=== PATIENT | male | born 1990 | race Caucasian/White ===

== ENCOUNTER → 2018-06-11 09:12 | Outpatient (CLI) | payer OTHER, SELFPAY ==
--- NOTE | 2018-06-11 09:17 | RAD_ITS ---
STUDY: X-RAY - RIGHT HAND REASON FOR EXAM: Male, 27 years old. Pain at the base of the thumb following injury. TECHNIQUE: 4 view(s) of the hand. COMPARISON: None. FINDINGS: Normal radiocarpal articulation. Normal distal radioulnar joint. Normal visualized carpal bones. Normal carpal articulations Normal carpometacarpal articulation of the thumb. Normal second through fifth carpometacarpal joints. Normal metacarpi. Normal metacarpophalangeal joint of the thumb. Normal interphalangeal joint of the thumb. Normal proximal and distal phalanges of the thumb. Normal metacarpophalangeal joints of the second through fifth fingers. Normal proximal and distal interphalangeal joints of the second through fifth fingers. Normal phalanges of the second through fifth fingers. The soft tissue structures are unremarkable. RAD/Hand Min 3 Views IMPRESSION: Normal x-ray examination of the hand. Electronically Signed: Demar Deutsch MD at 9:38 EDT Tel [phone], Service support ,
== END ==
PROVIDERS: Visit Provider Physician Assistant Surgical
DX: S66.911A Strain of unspecified muscle, fascia and tendon at wrist and hand level, right hand, initial encounter (principal); X58.XXXA Exposure to other specified factors, initial encounter
CPT/HCPCS: 73130

== ENCOUNTER → 2019-05-22 14:53 | Outpatient (CLI) | payer OTHER, SELFPAY ==
[2019-05-22 08:44] VITALS: BMI 39.2
== END ==
PROVIDERS: Referring Provider Physician Assistant; Visit Provider Physician Assistant
DX: T22.212A Burn of second degree of left forearm, initial encounter (principal)
CPT/HCPCS: 87070; 87077; 87186; 87205

== ENCOUNTER 2019-06-17 14:00 | Outpatient (RCR) | payer OTHER, SELFPAY ==
[2019-06-02 09:51] VITALS: BMI 39.2
[2019-06-03 14:58] VITALS: BP 185/119; PULSE 95; RESP 20; TEMP 36.4; BMI 37.3
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
[2019-06-10 14:09] VITALS: BP 155/95; PULSE 85; RESP 18; TEMP 36.6; BMI 37.3
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
[2019-06-17 14:00] VITALS: BP 194/100; PULSE 102; RESP 18; TEMP 37.3; BMI 37.3
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
== END 2019-06-25 23:59 ==
LOC: WC 14:00
PROVIDERS: Visit Provider Nurse Practitioner Family
DX: T22.212A Burn of second degree of left forearm, initial encounter (principal); X08.8XXA Exposure to other specified smoke, fire and flames, initial encounter; Y99.0 Civilian activity done for income or pay; L98.492 Non-pressure chronic ulcer of skin of other sites with fat layer exposed
CPT/HCPCS: 11042; 87070; 87075; 87077; 87186; 87205; 99213; G0463

== ENCOUNTER 2019-07-22 14:45 | Outpatient (RCR) | payer OTHER, SELFPAY ==
[2019-06-26 01:10] VITALS: BP 194/100; PULSE 102; RESP 18; TEMP 37.3
[2019-07-03 13:07] VITALS: BP 172/100; PULSE 90; RESP 20; TEMP 37.6; BMI 37.3
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
[2019-07-08 15:03] VITALS: BP 154/97; PULSE 92; RESP 18; TEMP 36.4; BMI 37.3
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
[2019-07-22 15:13] VITALS: BP 189/95; PULSE 94; RESP 18; TEMP 37.4; BMI 37.3
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
== END 2019-07-26 23:59 ==
LOC: WC 14:45
PROVIDERS: Visit Provider Nurse Practitioner Family
DX: T22.212A Burn of second degree of left forearm, initial encounter (principal); X08.8XXA Exposure to other specified smoke, fire and flames, initial encounter; Y99.0 Civilian activity done for income or pay; L98.492 Non-pressure chronic ulcer of skin of other sites with fat layer exposed; M79.602 Pain in left arm
CPT/HCPCS: 99212; 99213; G0463

== ENCOUNTER → 2019-07-30 10:27 | Outpatient (CLI) | payer OTHER, SELFPAY ==
[2019-07-22 15:13] VITALS: BMI 37.3
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
== END ==
PROVIDERS: Referring Provider Physician Assistant; Visit Provider Physician Assistant
DX: T22.212A Burn of second degree of left forearm, initial encounter (principal)
CPT/HCPCS: 73090

== ENCOUNTER 2019-08-18 09:00 | Outpatient (RCR) | payer OTHER, SELFPAY ==
[2019-08-06 10:12] VITALS: BMI 37.3
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
--- NOTE | 2019-10-15 18:55 | HP.OT.NRP ---
HP - Discharge Summary - Patient Information TOMASZ JANE was seen in my office for initial evaluation on 08/06/19. The following Plan of Care was established for this patient: Initial Frequency: 2-3x /Week Initial Duration: 4 Weeks Plan: cont with nerve glide - Anticipated Interventions Anticipated Interventions: A/AAROM/PROM, Strengthening, Scar Care, Triggerpoint Release, Desensitization, Sensory Retraining, Wound Care, Modalities This patient was last seen in our office 08/18/19. Pertinent comments regarding their Occupational therapy will appear below: Pt was seen for 5 OT visits with min. improvement in his symptoms. pt was advised to return to . At this time no further apt have been scheduled, pt is D/C at this time due to time lapse in care. At this point I will be discontinuing this patient from occupational therapy. I would be happy to see this patient again in the future if found appropriate by the physician. Thank you! Mgean Holcomb, OTR/L, CHT
== END 2019-08-18 19:00 | disposition home or self-care (01) ==
LOC: OT 09:00
PROVIDERS: Referring Provider Physician Assistant; Visit Provider Physician Assistant
DX: T22.212D Burn of second degree of left forearm, subsequent encounter (principal); T23.101D Burn of first degree of right hand, unspecified site, subsequent encounter
CPT/HCPCS: 97110; 97140; 97166; 97530

== ENCOUNTER → 2019-11-20 09:23 | Outpatient (CLI) | payer OTHER, SELFPAY ==
[2019-10-29 07:46] VITALS: BMI 37.3
--- NOTE | 2019-11-20 09:24 | RAD_ITS ---
STUDY: X-RAY - ORBITS REASON FOR EXAM: Male, 29 years old. pre mri. hx of metal in both eyes TECHNIQUE: 2 view(s) of the orbits were obtained. COMPARISON: None. FINDINGS: Normal bilateral orbits without a metallic orbital foreign body. Normal visualized facial bones. Normal paranasal sinuses. The soft tissue structures are unremarkable. RAD/Orbits for Foreign Body IMPRESSION: No demonstrated metallic orbital foreign body. The patient is cleared for an MRI examination. Electronically Signed: Duane Guajardo MD at 9:50 EST Tel , Service support ,
--- NOTE | 2019-11-20 09:24 | MRI_ITS ---
STUDY: MRI CERVICAL SPINE WITHOUT CONTRAST REASON FOR EXAM: Male, 29 years old. radiculopathy, neck pain/shoulder pain TECHNIQUE: Standardized fat and water weighted pulse sequences were obtained in the sagittal and axial planes. COMPARISON: None FINDINGS: Normal foramen magnum and brainstem-cervical cord junction. Normal craniovertebral junction. Normal anterior atlantoaxial articulation. Normal odontoid process. There is reversal of the normal cervical lordosis. Normal vertebral bodies and posterior osseous elements. C2-3: Normal endplates. Normal disc height, signal and morphology. Normal central canal and intervertebral neural foramina. C3-4: Normal endplates. Normal disc height, signal and morphology. Normal central canal and intervertebral neural foramina. C4-5: Normal endplates. Normal disc height, signal and morphology. Normal central canal and intervertebral neural foramina. C5-6: Normal endplates. Normal disc height, signal and morphology. Normal central canal and intervertebral neural foramina. C6-7: Normal endplates. Normal disc height, signal and morphology. Normal central canal and intervertebral neural foramina. C7-T1: Normal endplates. Normal disc height, signal and morphology. Normal central canal and intervertebral neural foramina. Normal cervical cord. Normal visualized soft tissue structures. MRI/Spine Cervical (Routine) IMPRESSION: Some reversal normal lordotic curvature possibly from muscular spasm. No spinal stenosis or neural foraminal stenosis. Electronically Signed: Duane Guajardo MD at 16:13 EST Tel , Service support ,
== END ==
PROVIDERS: Referring Provider Physician Assistant Surgical; Visit Provider Physician Assistant Surgical
DX: M54.12 Radiculopathy, cervical region (principal); Z98.890 Other specified postprocedural states
CPT/HCPCS: 70030; 72141

== ENCOUNTER 2020-03-18 10:30 | Outpatient (RCR) | payer OTHER, SELFPAY ==
[2020-01-15 13:30] VITALS: BMI 37.3
[2020-01-28 09:57] VITALS: BMI 37.3
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
--- NOTE | 2020-03-18 11:15 | HP.PTDCSUM_ITS ---
It has been my pleasure to treat TOMASZ JANE referred by JUDY Guillen, with the diagnosis of NECK STRAIN AND CERVICAL RADICULOPATHY for a total of 16 visit(s). Discharge Date: Please see the following information for a summary of their discharge status. Subjective: PATIENT REPORTS HE IS STILL DOING THE EX'S AND DOING OK WITH THEM BUT HE IS NOT GETTING BETTER OVER-ALL. PATIENT STATES HE IS NOT HAPPY WITH BEING ASKED TO WEAR A MASK AND WOULD LIKE TO BE DISCHARGED. PATIENT IS EXPRESSING APPRECIATION FOR US DOING ALL WE HAVE DONE TO TRY TO HELP HIM. Neck Pain Intensity (Out of 10): 6 Left Shoulder Pain Intensity (Out of 10): 6 % Improvement: 0 Objective/Function: PATIENT WAS SEEN TODAY FOR RE-ASSESSMENT OF PROGRESS TOWARD THE SET PT GOALS AND THE NEED FOR FURTHER PHYSICAL THERAPY VS READINESS FOR DISCHARGE. PATIENT IS NOT PROGRESSING WITH PHYSICAL THERAPY AND IS A GOOD CANDIDATE FOR PHYSICIAN RE-ASSESSMENT AT THIS POINT. UPON EXAM TODAY: Motor deficit: LEFT HANDED. RIGHT DISTRICT CLAIMS MANAGER STENGTH 103 LBS. LEFT 49 LBS. RIGHT UE 5/5 WITH MMT'ING. LEFT UE GROSSLY 4/5 WITH MMT'ING - PATIENT C/O A LOT OF INCREASED TINGLING WITH LEFT UE TESTING AGAIN TODAY. Sensory deficit: ALTERED SENSATION OF ENTIRE LEFT UE COMPARED TO RIGHT. ROM deficit: STEVE UE ROM WFL. Dural Signs: POSITIVE LEFT UE. Cervical Mvmt Loss: Flex: NIL. Pro: NIL. Ext: MOD TO VALERIA. Ret: VALERIA. RSB: MOD. LSB: MIN. R Rot: MOD. L Rot: MOD. PATIENT REPO RTS INCREASED NECK AND LEFT UE SX'S WITH CERVICAL ROM TESTING ALL PLANES BUT ESPECIALLY RIGHT ROT AND RIGHT SB AND EXT TODAY. Postural strength: POOR. Palpation: PATIENT CONTINUES TO BE VERY TENDER WITH PALPATION OF ENTIRE CERVICAL SPINE, UPPER THORACIC SPINE, MEDIAL LEFT SCAP REGION AND LEFT TRAP REGIONS. ESPECIALLY TENDER C56 REGION AND LEFT SCAP. Goal 1:: DECREASE C/O NECK AND LEFT UE SX'S (LEFT UE DOMINANT) Goal Progress: Not Progressing Goal 2:: IMPROVE PERSONAL CARE, LIFTING, READING, SLEEP, WORK, DRIVING AND RECREATIONAL FUNCTION. Goal Progress: Not Progressing Goal 3:: INSTRUCT IN PROPHYLAXIS Goal Progress: Not Progressing Plan: D/C DUE TO LACK OF PROGRESS. PATIENT AGREEABLE AND ACTUALLY CAME IN WANTING TO BE DISCHARGED. If there are questions or concerns regarding this patient's physical therapy, please feel free to call me at [phone]. Thank you for the referral of this patient. Sincerely, Alexsandra Rich PT, Cert MDT
== END 2020-03-18 19:00 | disposition home or self-care (01) ==
LOC: PT 10:30
PROVIDERS: Referring Provider Physician Assistant; Visit Provider Physician Assistant
DX: S16.1XXD Strain of muscle, fascia and tendon at neck level, subsequent encounter (principal)
CPT/HCPCS: 97012; 97014; 97035; 97110; 97112; 97162; 97164; 97530; G0283

== ENCOUNTER 2020-08-10 05:53 | Day surgery (SDC) | payer OTHER, SELFPAY ==
[2020-07-26 10:04] VITALS: BMI 37.3
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
[2020-08-10] VITALS (8 sets, daily range): BP systolic 153–162; BP diastolic 91–102; PULSE 87–95; RESP 16–18; TEMP 36.3–37.1; O2SAT 94–97; BMI 35.3
[2020-08-10] MEDS: Lactated Ringers 1,000 ML 100 ML IV (06:30)
[2020-08-10] MEDS: Cefazolin 2 GM in 0.9% Normal Saline 100 ML IV (07:23)
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
[2020-08-10] MEDS: Bupiv/Epi 0.5% Mpf 30 ML Vial (07:38)
--- NOTE | 2020-08-10 07:45 | DCINST_ITS ---
Discharge Diet: No Restrictions Additional Instructions: Ice and elevate operative extremity next 72 hours. Keep dressing on clean and dry for 48 hours then may remove and allow warm soapy water to rinse over incision but do not submerge until sutures are out. Then apply bandaid over incision and change daily. encourage finger range of motion. Not lift more than 1/2 pound. Allergies/Adverse Reactions: Allergies No Known Allergies Allergy (Verified 07/30/20 10:30) Medications to take at Discharge sulindac 200 mg tablet 200 mg PO QDAY #60 tab 06/30/20 Primary Care Physician: Care Physician,No Primary [Primary Care Provider] - Test Results: Test results from this visit will be discussed in further detail at your follow- up appointment, if applicable. Please Follow Up With: Ra Ricardo DO - 2 weeks
--- NOTE | 2020-08-10 07:47 | PCM.OPRPT ---
Report of Operation Date of Procedure: 08/10/20 Description of Surgical Findings:: Preoperative diagnosis; left carpal tunnel syndrome Postoperative diagnosis; same Procedure: Left open carpal tunnel release Anesthesia: Local with MAC Tourniquet time; 10 minutes 250 mm Hg Complications: None Indication for procedure; This is a 29-year-old male with long-standing symptoms consistent with carpal tunnel syndrome the patient did have electrodiagnostic evidence of this and has failed conservative treatment. Risks benefits and alternatives were reviewed including risks of bleeding infection nerve artery tissue damage need for further surgery and continued pain and symptoms, hypersensitivity to scar and Pillar pain. Procedure; The patient was met in the preoperative holding area the operative extremity was identified by both patient and physician and was marked the patient was met by anesthesia and brought back to the operating room and transferred to the operating table in the supine position. Aanesthesia was started. A well-padded tourniquet was placed on the operative upper extremity. The patient was prepped and draped in the usual sterile fashion. A timeout was called to ensure the proper patient procedure and extremity were being contemplated. 0.5 percent Marcaine with epinephrine was injected into the incisional area. An Esmarch was used to exsanguinate the extremity. The tourniquet was inflated to 250 mmHg. A midline incision was made with a 15 blade scalpel between the thenar and hypothenar eminence. This was carried down through the skin and subcutaneous tissue. Jada retractors were then used, a deep blade scalpel was used to make a deep incision in the palmar aponeurosis. The jada retractors were then placed deep to this and the transverse carpal ligament was identified a perforation was made with a scalpel and a Littler scissors were used to complete the release of the transverse carpal ligament distally under direct visualization with the tips facing ulnarly until the perivascular fat was reached. Then turning our attention proximally using a tension slide technique the proximal extent of the transverse carpal ligament was released . There was noted to be hourglass configuration to the median nerve and hypertrophy of the transverse carpal ligament without other findings. The wound was thoroughly irrigated and was closed with 4-0 prolene vertical mattress stitches. Dressing was applied in the form of xeroform 4 x 4, web roll and an sully wrap. Tourniquet was let down there is no intraoperative complications patient tolerated the procedure well and was transferred to the PACU. All counts were correct.
== END 2020-08-10 08:58 | disposition home or self-care (01) ==
LOC: SDC 05:54 → AC 05:54
PROVIDERS: Anesthesiology; Referring Provider Orthopaedic Surgery; Visit Provider Orthopaedic Surgery
PROC: (CPT 64721; principal; 2020-08-10 07:15)
DX: G56.02 Carpal tunnel syndrome, left upper limb (principal); Z11.59 Encounter for screening for other viral diseases
CPT/HCPCS: 01810; 64721; 87635; C9803; J7120; A4216; U0003

== ENCOUNTER 2020-11-03 08:30 | Outpatient (RCR) | payer OTHER, SELFPAY ==
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
--- NOTE | 2020-10-18 09:14 | OTREVAL_ITS ---
Dr. Ra Ricardo, DO, It has been my pleasure to treat TOMASZ JANE over the last 4 visits for CTS, s/p CTR. Please see the progress note below for an update on the occupational therapy plan of care! Subjective: Pt, reporting pain at 5. When required to do more repitions of any movement pain increases to 9 or 10. Pt. reports from the elbow down is always numb until he moves it then their is pain. Objective/Function: L physical therapy manager - 15 this is a decrease from initial that was 20#. L lateral pincher 4# this is a decrease from 6#. L tripod pinch 4# this is a decrease from 10#. pt continues to struggle with numbness of his hand and reports dropping items Plan Frequency: 2-3x /Week Duration: 4 Weeks Visits in this POC: 8 Plan: cont. with gym eq. to increase pts functional strength to RTW. test sensation Goals - Goals Patient Goals: Decrease Pain, Use Hand/Wrist/Arm Normally Again, Decrease Tingling/Numbness Goal:: pt will demo a increase in left physical therapy manager strength by 60# or greater to increase pts ind. with ADLs and IADLs by d/c Goal:: pt will report pain no greater than 2/10 with use of left UE with ADls and IADLs by d.c Goal:: pt will demo a increase in sensation by testing with monofilament decrease (investigation division sergeant monofilament) indicating nerve return. Goal:: pt will demo understanding of scar mtg by end of 2nd session to decrease risk of scar adhesions Goal:: pt will demo understanding of joint protection and work ergo gerard, by dc Anticipated Interventions Anticipated Interventions: A/AAROM/PROM, Strengthening, Scar Care, Triggerpoint Release, Desensitization, Sensory Retraining, Modalities, Orthoses, Joint Protection/Energy Conservation, Ergonomic Education Please do not hesitate to contact me at [phone] by phone or if you have questions or concerns regarding this new plan of care! Sincerely, Megan Holcomb, OTR/L, CHT
--- NOTE | 2020-11-03 09:00 | HP.OTREVAL ---
Dr. Ra Ricardo, DO, It has been my pleasure to treat TOMASZ JANE over the last 6 visits for CTS, s/p CTR. Please see the progress note below for an update on the occupational therapy plan of care! Subjective: Pt states he has not made much changes in the sensation - and has most relief placing arm overhead- Objective/Function: R outsole rounder 89#. L Fagot Heater Helper 21# initial 20#. L Lat pinch 4# decrease from 6#. L Tripod Pinch 5# , initial 10#. Pt states whole hand is numb up through elbow. monofilament testing. left thumb 3.22 = to initial. left IF 3.22 indicating a increase in left IF sensation from inital that was 3.61. left MF 4.08 = to initial. left RF 4.75 a decrease in sensation as initial was 4.56 and LF 5.07=from initital eval-. pt outsole rounder has not changed since initial eval. therapist performed static compaire with BTE and left hand strength is 86% less than right . left is dom.hand Plan Frequency: 2-3x /Week Duration: 4 Weeks Visits in this POC: 8 Plan: Cont POC , BTE and gym Eq Goals - Goals Patient Goals: Decrease Pain, Use Hand/Wrist/Arm Normally Again, Decrease Tingling/Numbness Goal:: pt will demo a increase in left outsole rounder strength by 60# or greater to increase pts ind. with ADLs and IADLs by d/c Goal:: pt will report pain no greater than 2/10 with use of left UE with ADls and IADLs by d.c Goal:: pt will demo a increase in sensation by testing with monofilament decrease (molded goods inspector trimmer monofilament) indicating nerve return. Goal:: pt will demo understanding of scar mtg by end of 2nd session to decrease risk of scar adhesions Goal:: pt will demo understanding of joint protection and work ergo gerard, by dc Anticipated Interventions Anticipated Interventions: A/AAROM/PROM, Strengthening, Scar Care, Triggerpoint Release, Desensitization, Sensory Retraining, Modalities, Orthoses, Joint Protection/Energy Conservation, Ergonomic Education Please do not hesitate to contact me at [phone] by phone or if you have questions or concerns regarding this new plan of care! Sincerely, Megan Holcomb, OTR/L, CHT
--- NOTE | 2020-11-04 08:51 | HP.OTDCSUM ---
It has been my pleasure to treat TOMASZ JANE under orders from Dr. Ra Ricardo DO, for the diagnosis of CTS, s/p CTR for a total of 7 visit(s). Please see the following information for a summary of their discharge status. % Improvement: 10 Objective/Function: R inventory controller 89#. L It Trainee 21# initial 20#. L Lat pinch 4# decrease from 6#. L Tripod Pinch 5# , initial 10#. Pt states whole hand is numb up through elbow. monofilament testing. left thumb 3.22 = to initial. left IF 3.22 indicating a increase in left IF sensation from inital that was 3.61. left MF 4.08 = to initial. left RF 4.75 a decrease in sensation as initial was 4.56 and LF 5.07=from initital eval-. pt inventory controller has not changed since initial eval. therapist performed static compaire with BTE and left hand strength is 86% less than right . left is dom.hand Patient Goals: Decrease Pain, Use Hand/Wrist/Arm Normally Again, Decrease Tingling/Numbness Goal Progress: Progressing Goal:: pt will demo a increase in left inventory controller strength by 60# or greater to increase pts ind. with ADLs and IADLs by d/c Goal:: pt will report pain no greater than 2/10 with use of left UE with ADls and IADLs by d.c Goal:: pt will demo a increase in sensation by testing with monofilament decrease (education adviser monofilament) indicating nerve return. Goal:: pt will demo understanding of scar mtg by end of 2nd session to decrease risk of scar adhesions Goal:: pt will demo understanding of joint protection and work ergo gerard, by dc Plan: D/C Discharge Comments: pt was seen for 7 OT visits- with no decrease in pain or increase in strength- pt went back to see baljit brasher CNP and was refered to spine . Pt d/c from OT at this time. If there are questions or concerns regarding this patient's occupational therapy, please fell free to call me at [phone]. Thank you for the referral of this patient. Sincerely, Megan Holcomb, OTR/L, CHT
== END 2020-11-03 19:00 | disposition home or self-care (01) ==
LOC: OT 08:30
PROVIDERS: Referring Provider Orthopaedic Surgery; Visit Provider Orthopaedic Surgery
DX: Z47.89 Encounter for other orthopedic aftercare (principal)
CPT/HCPCS: 97035; 97110; 97140; 97166; 97167; 97530

== ENCOUNTER → 2020-12-04 08:33 | Outpatient (CLI) | payer OTHER, SELFPAY ==
[2020-08-23 08:01] VITALS: BMI 35.3
--- NOTE | 2020-12-04 08:34 | MRI_ITS ---
STUDY: MRI CERVICAL SPINE WITHOUT CONTRAST REASON FOR EXAM: Male, 30 years old. cervical pain, TECHNIQUE: Standardized fat and water weighted pulse sequences were obtained in the sagittal and axial planes. COMPARISON: 11/20/2019 FINDINGS: Normal foramen magnum and brainstem-cervical cord junction. Normal craniovertebral junction. Normal anterior atlantoaxial articulation. Normal odontoid process. There is straightening of the normal cervical lordosis. Normal vertebral bodies and posterior osseous elements. C2-3: Normal endplates. Normal disc height, signal and morphology. Normal central canal and intervertebral neural foramina. C3-4: Normal endplates. Normal disc height, signal and morphology. Normal central canal and intervertebral neural foramina. C4-5: Normal endplates. Normal disc height, signal and morphology. Normal central canal and intervertebral neural foramina. C5-6: Normal endplates. Normal disc height, signal and morphology. Normal central canal and intervertebral neural foramina. C6-7: Normal endplates. Normal disc height, signal and morphology. Normal central canal and intervertebral neural foramina. C7-T1: Normal endplates. Normal disc height, signal and morphology. Normal central canal and intervertebral neural foramina. Normal cervical cord. Normal visualized soft tissue structures. MRI/Spine Cervical (Routine) IMPRESSION: Some straightening of the normal lordotic curvature possibly from muscular spasm but no spinal stenosis or neural foraminal stenosis. Electronically Signed: Duane Guajardo MD at 11:19 EST Tel , Service support ,
== END ==
PROVIDERS: Referring Provider Orthopaedic Surgery; Visit Provider Orthopaedic Surgery
DX: G56.02 Carpal tunnel syndrome, left upper limb (principal)
CPT/HCPCS: 72141

== ENCOUNTER 2020-12-29 12:24 | Outpatient (RCR) | payer OTHER, SELFPAY ==
--- NOTE | 2020-12-29 12:55 | HP.OTFCE.D ---
FCE D/C Summary - Discharge TOMASZ JANE was seen for a one time visit for an FCE on and is discharged.
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
--- NOTE | 2021-01-07 07:39 | HP.OTFCE.D ---
FCE D/C Summary - Discharge TOMASZ JANE was seen for a one time visit for an FCE on 12/29/20 and is discharged.
== END 2020-12-29 19:00 | disposition home or self-care (01) ==
LOC: OT 12:24
PROVIDERS: Referring Provider Orthopaedic Surgery; Visit Provider Orthopaedic Surgery
DX: M54.12 Radiculopathy, cervical region (principal)
CPT/HCPCS: 97750

== ENCOUNTER → 2021-03-16 08:08 | Outpatient (CLI) | payer OTHER, SELFPAY ==
--- NOTE | 2021-03-16 10:51 | NEURO ---
NCS and/or EMG Patient Report Ordering Doctor: Arash Gutierrez DATE OF SERVICE: 03/16/21 Alberto Flanagan presents for electrodiagnostic testing of the upper limbs. He reports weakness in the left hand with intermittent numbness. He has previous left carpal tunnel release. Electrodiagnostic findings: Left median motor nerve demonstrates prolonged distal latency with normal amplitude and reduced conduction velocity. Right median motor nerve demonstrates prolonged latency with normal amplitude and borderline reduced conduction velocity. Left ulnar nerve demonstrates a decrease in conduction across the left elbow of approximately 30%. Normal right ulnar motor response. Normal median ulnar F waves. On needle EMG, all muscles tested in the upper limbs, as well as the cervical paraspinals, showed no evidence of denervation with normal motor unit action potentials. Electrodiagnostic impression: This is an abnormal study in the upper limbs 1. Electrodiagnostic findings demonstrate bilateral median mononeuropathy. This is consistent with a recurrence of left carpal tunnel syndrome. There is no clinical evidence of right carpal tunnel syndrome, as the patient is largely asymptomatic there. 2. Electrodiagnostic findings demonstrate left-sided ulnar neuropathy. This is consistent with a moderate left cubital tunnel syndrome. 3. No electrodiagnostic evidence is noted for cervical radiculopathy.
== END ==
PROVIDERS: Referring Provider Anesthesiology Pain Medicine; Visit Provider Anesthesiology Pain Medicine
DX: M54.12 Radiculopathy, cervical region (principal); G56.02 Carpal tunnel syndrome, left upper limb; L98.492 Non-pressure chronic ulcer of skin of other sites with fat layer exposed; T23.131A Burn of first degree of multiple right fingers (nail), not including thumb, initial encounter; T22.212A Burn of second degree of left forearm, initial encounter
CPT/HCPCS: 95886; 95912